=== PATIENT | male | born 1960 | race Caucasian/White ===

== ENCOUNTER → 2018-02-22 | Outpatient (CLI) | payer BC ==
[~2018-02-22] MED LIST: CATHETER FLUSH 10 ML SYR IV PRN; IOHEXOL 350 MG/ML 150 ML (OMNIPAQUE 350) VIAL IV ONE; MULT-974 PO; NS 250 ML (IVPB) BAG IV ONE; RECEIVED CONTRAST (Hold Metformin) IV SCH
[2018-02-22 16:16] LABS: BUN/CREATININE RATIO 13; CREATININE SERUM 0.85 MG/DL (0.60-1.30); GFR ESTIMATED > 60
--- NOTE | 2018-02-22 16:43 | Diagnostic Imaging Report ---
PROCEDURE: US Venous Lower Ext David. INDICATION: Shortness of breath, cough, hemoptysis, pain. TECHNIQUE: Grayscale with color-flow and Doppler waveform evaluation of the bilateral lower extremity deep venous systems. CORRELATION STUDY: None FINDINGS: Color and grayscale sonographic images demonstrate no intraluminal defect within the visualized portion of the common femoral, superficial femoral and/or popliteal veins to suggest thrombus formation. These vessels demonstrate normal response to compression and augmentation. No significant focal soft tissue fluid collection. IMPRESSION: 1. Negative for deep venous thrombosis of either leg. Dictated by: Dictated on workstation # [id number]
--- NOTE | 2018-02-22 17:20 | Diagnostic Imaging Report ---
PROCEDURE: CT angiography of the chest with contrast. TECHNIQUE: Multiple contiguous axial images were obtained through the chest after uneventful bolus administration of intravenous contrast. 2D reconstructed CTA MIP acquisitions were also performed. INDICATION: Chest pain and shortness of breath. COMPARISON: No prior studies are available for comparison. FINDINGS: The thoracic aorta is normal in caliber. No aneurysm or dissection is seen. Pulmonary arterial system is without evidence of thromboembolism. No filling defects are seen within central, lobar, or segmental branches. No pericardial or pleural fluid is seen. No axillary lymphadenopathy is detected. There are numerous calcified lymph nodes in the mediastinum and alia. There are also multiple calcified nodules throughout both lungs. Findings are consistent with prior granulomatous exposure. No noncalcified mass or infiltrate is detected. The upper abdomen is unremarkable. IMPRESSION: 1. No evidence of pulmonary embolism or thoracic aortic dissection. 2. Findings consistent with prior granulomatous exposure. Dictated by: Dictated on workstation # [id number]
== END ==
LOC: RAD 15:38
PROVIDERS: ATTEND Nurse Practitioner Family
DX: R06.02 Shortness of breath (principal); R04.2 Hemoptysis; M79.606 Pain in leg, unspecified
CPT/HCPCS: 36415; 71275; 82565; 84520; 93970; 94761

== ENCOUNTER 2018-02-23 15:27 | Emergency (ER) | payer BC ==
[~2018-02-23] VITALS: Ht 170.2 cm; Wt 74.8 kg
[2018-02-23] MEDS ORDERED: NITROGLYCERIN 0.4 MG SL TABS BTL 25'S SL PRN (15:45)
[2018-02-23] MEDS ORDERED: ASPIRIN 81 MG CHEW (CHILDREN'S ASA) PO ONE (15:45)
[2018-02-23] MEDS ORDERED: MULT-974 PO (15:53)
--- NOTE | 2018-02-23 15:54 | ED Chest Pain ---
General Chief Complaint: Chest Pain Stated Complaint: CP Source: patient Exam Limitations: no limitations History of Present Illness Date Seen by Provider: Feb 23, 2018 Time Seen by Provider: 15:29 Initial Comments The patient presents to the ER by private conveyance with his sister and chief complaint that he is having chest pain substernal that feels like in his chest wall like a pulled muscle radiates around to the back for the past one year. He is also been having a productive cough with flecks of blood in it for the past year. He says the pain is episodic worse with deep inspiration, coughing or movement when it happens. Usually uses some Tylenol or ibuprofen. He says the pain is episodic with this episode starting sometime this afternoon. He was at the hydrochloric area supervisor office referred there by Dr. CAGE his primary care doctor to have his chronic pulmonary and chest pain symptoms worked up. He says he's had plain radiographs done by PCP and thought there might some scarring from an old infection in his lungs. The hydrochloric area supervisor noted him to be having chest pain and sent him to the ER to have his heart worked up. He denies any previous history of coronary artery disease, hypertension, diabetes, cholesterolemia, hypothyroidism, smoking. No significant family history for coronary artery disease before the age of 60. His father had a heart valve replacement at age 66. He denies exposure to anybody with tuberculosis or a chronic cough or any travel outside the [place]. He does have horses that he takes care of and works and does see environments. 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 He states that Dr. Hernandez performed ultrasounds on his bilateral lower extremities as well as a CT angiogram of his chest which she was told was negative last night but he was encouraged to stay in the hospital as a direct admit to workup his chest pain and at that time he had to go home and take care of his horses so he declined to stay. He endorses occasional night sweats. He denies a history of HIV or other immunocompromise. Allergies and Home Medications Allergies Coded Allergies: No Known Drug Allergies (Unverified , 02/23/18) Patient Home Medication List Home Medication List Reviewed: Yes Review of Systems Review of Systems Constitutional: No chills, No diaphoresis EENTM: No Blurred Vision, No Double Vision Respiratory: Cough; Denies Shortness of Air, Denies Wheezing Cardiovascular: See HPI, Chest Pain; Denies Edema, Denies Irregular Heart Rate , Denies Palpitations, Denies Syncope Gastrointestinal: Denies Abdomen Distended, Denies Abdominal Pain, Denies Nausea Genitourinary: Denies Burning, Denies Discharge, Denies Drainage Musculoskeletal: No back pain, No joint pain Skin: No pruritus, No rash Past Ehmgaiu-Zdhfjv-Etocpe Hx Patient Social History Alcohol Use: Regular Use Alcohol Beverage of Choice: Beer Recreational Drug Use: No Smoking Status: Never a Smoker Recent Foreign Travel: No Contact w/Someone Who Travel: No Recent Hopitalizations: No Physical Abuse: No Sexual Abuse: No Mistreated: No Fear: No Seasonal Allergies Seasonal Allergies: No Past Medical History Surgeries: Yes (carpal tunnel bilat, hernia repair, spinal injections) Respiratory: No Cardiac: No Neurological: No Genitourinary: No Gastrointestinal: No Musculoskeletal: No Endocrine: No HEENT: No Cancer: No Psychosocial: No Integumentary: No Blood Disorders: No Physical Exam Vital Signs Vital Signs - First Documented 02/23/18 15:30 Temp 98.9 Pulse 82 Resp 16 B/P (MAP) 141/64 (89) Pulse Ox 97 O2 Delivery Room Air Capillary Refill : Less Than 3 Seconds Height, Weight, BMI Height: '" Weight: lbs. oz. kg; BMI Method: General Appearance: No Apparent Distress, WD/WN HEENT: PERRL/EOMI, Pharynx Normal, Moist Mucous Membranes Neck: Full Range of Motion, Normal Inspection, Supple Respiratory: Lungs Clear, Normal Breath Sounds, No Accessory Muscle Use, No Respiratory Distress, Other (chest pain reproducible by direct palpation over the sternum.) Cardiovascular: Regular Rate, Rhythm, Normal Peripheral Pulses Gastrointestinal: Normal Bowel Sounds, Non Tender, Soft Extremity: Normal Capillary Refill, Normal Inspection, Non Tender, No Calf Tenderness, No Pedal Edema Neurologic/Psychiatric: Alert, Oriented x3, No Motor/Sensory Deficits, Normal Mood/Affect Skin: Normal Color, Warm/Dry Other comments Neck and back nontender to palpation. Progress/Results/Core Measures Results/Orders Lab Results Laboratory Tests Test 02/23/18 15:35 Range/Units White Blood Count 4.6 4.3-11.0 10^3/uL Red Blood Count 4.40 4.35-5.85 10^6/uL Hemoglobin 13.0 L 13.3-17.7 G/DL Hematocrit 39 L 40-54 % Mean Corpuscular Volume 89 80-99 FL Mean Corpuscular Hemoglobin 30 25-34 PG Mean Corpuscular Hemoglobin Concent 33 32-36 G/DL Red Cell Distribution Width 13.1 10.0-14.5 % Platelet Count 276 130-400 10^3/uL Mean Platelet Volume 9.0 7.4-10.4 FL Neutrophils (%) (Auto) 52 42-75 % Lymphocytes (%) (Auto) 34 12-44 % Monocytes (%) (Auto) 10 0-12 % Eosinophils (%) (Auto) 2 0-10 % Basophils (%) (Auto) 1 0-10 % Neutrophils # (Auto) 2.4 1.8-7.8 X 10^3 Lymphocytes # (Auto) 1.6 1.0-4.0 X 10^3 Monocytes # (Auto) 0.5 0.0-1.0 X 10^3 Eosinophils # (Auto) 0.1 0.0-0.3 10^3/uL Basophils # (Auto) 0.0 0.0-0.1 10^3/uL Prothrombin Time 12.5 12.2-14.7 SEC INR Comment 0.9 0.8-1.4 Activated Partial Thromboplast Time 31 24-35 SEC Sodium Level 140 135-145 MMOL/L Potassium Level 3.9 3.6-5.0 MMOL/L Chloride Level 107 98-107 MMOL/L Carbon Dioxide Level 24 21-32 MMOL/L Anion Gap 9 5-14 MMOL/L Blood Urea Nitrogen 13 7-18 MG/DL Creatinine 0.84 0.60-1.30 MG/DL Estimat Glomerular Filtration Rate > 60 BUN/Creatinine Ratio 15 Glucose Level 108 H 70-105 MG/DL Calcium Level 9.5 8.5-10.1 MG/DL Corrected Calcium 9.4 8.5-10.1 MG/DL Magnesium Level 2.3 1.8-2.4 MG/DL Total Bilirubin 0.2 0.1-1.0 MG/DL Aspartate Amino Transf (AST/SGOT) 20 5-34 U/L Alanine Aminotransferase (ALT/SGPT) 17 0-55 U/L Alkaline Phosphatase 68 40-136 U/L Myoglobin 24.4 10.0-92.0 NG/ML Troponin I < 0.30 <0.30 NG/ML B-Type Natriuretic Peptide 13.7 <100.0 PG/ML Total Protein 7.2 6.4-8.2 GM/DL Albumin 4.1 3.2-4.5 GM/DL Lipase 18 8-78 U/L My Orders Orders - JORGITO SPAIN Continuous Ekg Monitoring (02/23/18 15:28) Ekg Tracing (02/23/18 15:28) Cbc With Automated Diff (02/23/18 15:45) Magnesium (02/23/18 15:45) Chest 1 View, Ap/Pa Only (02/23/18 15:45) Cardiac Profile 1 (02/23/18 15:45) Comprehensive Metabolic Panel (02/23/18 15:45) Myoglobin Serum (02/23/18 15:45) Protime With Inr (02/23/18 15:45) Partial Thromboplastin Time (02/23/18 15:45) O2 (02/23/18 15:45) Lipid Panel (02/24/18 06:00) Aspirin Chewable Tablet (Baby Aspirin Ch (02/23/18 15:45) Nitroglycerin 0.4 Mg Btl 25's (Nitrostat (02/23/18 15:45) Saline Lock/Iv-Start (02/23/18 15:45) Lipase (02/23/18 15:45) BNP (02/23/18 15:45) Medications Given in ED Current Medications Medications Dose Ordered Sig/Cornelius Route Start Time Stop Time Status Last Admin Dose Admin Aspirin 324 mg ONCE ONCE PO 02/23/18 15:45 02/23/18 15:49 DC 02/23/18 15:58 324 MG Nitroglycerin 0.4 mg UD PRN SL 02/23/18 15:45 02/23/18 15:56 0.4 MG Vital Signs/I&O 02/23/18 02/23/18 15:30 15:30 Temp 98.9 Pulse 82 Resp 16 B/P (MAP) 141/64 (89) Pulse Ox 97 O2 Delivery Room Air Progress Progress Note : Time: 15:55 Progress Note ED ACS 8 points lower risk score. If the patient also has: (1) EKG without new ischemic changes and (2) negative initial and 2-hour troponins, then this patient is safe for discharge to early outpatient follow-up investigation (or proceed to earlier inpatient testing). If EKG with ischemic changes or positive troponin, they are not low risk and require normal risk stratification. Patient' s pain has been going on for several hours today as well as its been going on for the past year. If of the initial troponin is negative we'll consider that a rule out. This is an atypical presentation for coronary disease however we will obtain a troponin to go along with his normal sinus rhythm EKG and did consultation with cardiology. It appears by history and examination to be more chest wall musculoskeletal-type pain. It's possibly secondary to his chronic cough. We put a mask on him since he has night sweats and chronic cough. We'll see if nitroglycerin makes any difference in his symptoms. If not we may consider NSAIDs. CT angiogram of the chest from yesterday demonstrates: 1. No evidence of pulmonary embolism or thoracic aortic dissection. 2. Findings consistent with prior granulomatous exposure. Initial ECG Impression Date: Feb 23, 2018 Initial ECG Impression Time: 15:31 Initial ECG Rate: 82 Initial ECG Rhythm: Normal Sinus Initial ECG Impression: Normal Initial ECG Comparisson: No Previous ECG Available Comment No ST elevation or depression. Diagnostic Imaging Diagonstic Imaging: Xray Plain Films/CT/US/NM/MRI: chest (1v) Comments VIA [facility]. [place], [place] NAME: DARLENE HUSSEIN [facility] REC#: [id number] PT STATUS: REG ER : 1960 PHYSICIAN: JORGITO SPAIN MD ADMIT DATE: 02/23/18/ER Draft Date of Exam:02/23/18 CHEST 1 VIEW, AP/PA ONLY INDICATION: Chest pain and hemoptysis. Portable chest at 03:58 p.m. FINDINGS: Heart size and pulmonary vascularity are normal. Lungs are clear. There are no effusions or pneumothoraces. IMPRESSION: Negative chest. Dictated on workstation # [id number] Dict: 02/23/18 1608 Trans: 02/23/18 1624 [id number] Interpreted by: JOE DAMIAN MD Electronically signed by: Reviewed: Reviewed by Me Consults : Consulting Physician: PHIL MATT MD Consults Notes Discussed case lab imaging findings and Dr. Matt would be happy to see the patient in the morning. Departure Impression Primary Impression: Chest pain Qualified Codes: R07.9 - Chest pain, unspecified Additional Impression: Hemoptysis Disposition: 01 HOME, SELF-CARE Condition: Stable Departure-Patient Inst. Decision time for Depature: 16:59 Referrals: CHEYENNE CAGE DO (PCP/Family) Primary Care Physician PHIL MATT MD Patient Instructions: Chest Pain That Is Not Caused by the Heart (DC) Add. Discharge Instructions: Call Dr. Matt, paralegal internship in the morning and request an appointment to be seen before the end of the week. Follow-up with Dr. Hernandez, pulmonology. All discharge instructions reviewed with patient and/or family. Voiced understanding. Work/School Note: Work Release Form Date Seen in the Emergency Department: Feb 23, 2018 Return to Work: Feb 24, 2018 Restrictions: No Restrictions Copy Copies To 1: CHEYENNE CAGE DO; PHIL MATT MD, TITUS J Feb 23, 2018 15:54
[2018-02-23 16:07] LABS: BASOPHILS % (AUTO) 1 % (0-10); EOSINOPHILS # (AUTO) 0.1 10^3/uL (0.0-0.3); EOSINOPHILS % (AUTO) 2 % (0-10); HEMATOCRIT 39 % (40-54); LYMPHOCYTES # (AUTO) 1.6 X 10^3 (1.0-4.0); LYMPHOCYTES % (AUTO) 34 % (12-44); MEAN CORPUSCULAR HEMOGLOBIN 30 PG (25-34); MEAN CORPUSCULAR HGB CONC 33 G/DL (32-36); MEAN CORPUSCULAR VOLUME 89 FL (80-99); MONOCYTES # (AUTO) 0.5 X 10^3 (0.0-1.0); MONOCYTES % (AUTO) 10 % (0-12); NEUTROPHILS # (AUTO) 2.4 X 10^3 (1.8-7.8); NEUTROPHILS % (AUTO) 52 % (42-75); PLATELET COUNT 276 10^3/uL (130-400); RED CELL DISTRIBUTION WIDTH 13.1 % (10.0-14.5); WHITE BLOOD COUNT 4.6 10^3/uL (4.3-11.0)
[2018-02-23 16:16] LABS: INR 0.9 (0.8-1.4); PROTHROMBIN TIME PATIENT 12.5 SEC (12.2-14.7)
[2018-02-23 16:22] LABS: ALANINE AMINOTRANSFERASE 17 U/L (0-55); ALBUMIN 4.1 GM/DL (3.2-4.5); ALKALINE PHOSPHATASE 68 U/L (40-136); BILIRUBIN,TOTAL 0.2 MG/DL (0.1-1.0); BUN/CREATININE RATIO 15; CALCIUM 9.5 MG/DL (8.5-10.1); CARBON DIOXIDE 24 MMOL/L (21-32); CHLORIDE 107 MMOL/L (98-107); CREATININE SERUM 0.84 MG/DL (0.60-1.30); GFR ESTIMATED > 60; GLUCOSE 108 MG/DL (70-105); LIPASE 18 U/L (8-78); MAGNESIUM 2.3 MG/DL (1.8-2.4); POTASSIUM 3.9 MMOL/L (3.6-5.0); SODIUM 140 MMOL/L (135-145); TOTAL PROTEIN 7.2 GM/DL (6.4-8.2)
--- NOTE | 2018-02-23 16:24 | Diagnostic Imaging Report ---
INDICATION: Chest pain and hemoptysis. Portable chest at 03:58 p.m. FINDINGS: Heart size and pulmonary vascularity are normal. Lungs are clear. There are no effusions or pneumothoraces. IMPRESSION: Negative chest. Dictated by: Dictated on workstation # [id number]
[2018-02-23 16:28] LABS: MYOGLOBIN SERUM 24.4 NG/ML (10.0-92.0)
[2018-02-23 17:10] VITALS: BP 124/77
== END 2018-02-23 17:10 | disposition home or self-care (01) ==
LOC: EDUNIT# 15:27 → ER 15:28
DX: R07.81 Pleurodynia (principal); R04.2 Hemoptysis; Z82.49 Family history of ischemic heart disease and other diseases of the circulatory system; Z95.2 Presence of prosthetic heart valve; Z98.890 Other specified postprocedural states
CPT/HCPCS: 36415; 71045; 80053; 83690; 83735; 83874; 83880; 84484; 85025; 85610; 85730; 93005

== ENCOUNTER 2018-03-07 10:15 | Outpatient (CLI) | payer BC ==
[~2018-03-07] VITALS: Ht 170.2 cm; Wt 74.8 kg
[~2018-03-07 10:15] MED LIST changes: -CATHETER FLUSH 10 ML SYR IV PRN; -IOHEXOL 350 MG/ML 150 ML (OMNIPAQUE 350) VIAL IV ONE; -NS 250 ML (IVPB) BAG IV ONE; -RECEIVED CONTRAST (Hold Metformin) IV SCH
[2018-03-07] MEDS ORDERED: CINN500C2 PO (10:21)
== END 2018-03-07 10:34 | disposition home or self-care (01) ==
LOC: PREOP 10:15
PROVIDERS: ATTEND Internal Medicine Critical Care Medicine
DX: Z01.818 Encounter for other preprocedural examination (principal)

== ENCOUNTER 2018-03-09 07:41 | Day surgery (SDC) | payer BC ==
[~2018-03-09] VITALS: Ht 170.2 cm; Wt 74.8 kg
[~2018-03-09 07:41] MED LIST changes: +CINN500C2 PO
[2018-03-09] MEDS ORDERED: LIDOCAINE JELLY 2% (XYLOCAINE) 30 ML TUBE TOP ONE (07:42)
[2018-03-09] MEDS ORDERED: LIDOCAINE PF 2% 5 ML (XYLOCAINE) VIAL INJ ONE (07:42)
[2018-03-09] MEDS ORDERED: LIDOCAINE PF 1% 2 ML VIAL (OR ONLY) IJ ONE (07:42)
[2018-03-09] MEDS ORDERED: 0.9% SODIUM CHLORIDE PF INJ 10 ML VIAL IV ONE (07:42)
[2018-03-09] MEDS ORDERED: EPINEPHrine INJECTION 1 MG/ML AMP INJ ONE (07:42)
[2018-03-09] MEDS ORDERED: NS IV 500 ML 500 ML ONE (08:01)
[2018-03-09] MEDS ORDERED: MIDAZOLAM 2 MG/2 ML (VERSED) VIAL IVP ONE (08:15)
[2018-03-09] MEDS ORDERED: NS IV 500 ML 500 ML IV PRN (08:15)
[2018-03-09] MEDS ORDERED: fentaNYL INJECTION 100 MCG/2 ML AMP IVP ONE (08:15)
[2018-03-09 08:21] VITALS: BP 124/69
[2018-03-09] MEDS ORDERED: fentaNYL INJECTION 100 MCG/2 ML AMP ONE ×2 (09:04→09:26)
[2018-03-09] MEDS ORDERED: MIDAZOLAM 2 MG/2 ML (VERSED) VIAL ONE ×4 (09:05→09:32)
[2018-03-09 10:10] VITALS: BP 126/78
--- NOTE | 2018-03-09 10:29 | Diagnostic Imaging Report ---
INDICATION: Post bronchoscopy. TECHNIQUE: A frontal chest was obtained at 1016 hours. COMPARISON: 02/23/2018. FINDINGS: The heart and mediastinal silhouette are normal in appearance. There is no pneumothorax or pleural fluid following bronchoscopy. There is no new infiltrate. IMPRESSION: No pneumothorax or pleural fluid following bronchoscopy. No new abnormality in the chest. Dictated by: Dictated on workstation # [id number]
[2018-03-09 10:41] VITALS: BP 124/80
[2018-03-09 10:42] VITALS: BP 124/80
--- NOTE | 2018-03-30 12:20 | Pulmonary Procedures ---
Pulmonary Procedures Date of Procedure Date of Service: Mar 09, 2018 Bronch Bronchoscopy with fleuroscopy bronchoalveolar lavage (BAL), transbronchial washes and, brushes. Preop DX Lung mass Postop DX: Right endobronchial mass noted Complications: none After informed consent obtained and formal time out pt was sedated using Fentanyl and Versed. Bronchoscope was advanced through the nare and vocal cords. 1% lidocaine was used to anesthetize vocal cords, epiglottis, sd, and left/right main stem bronchus. An anatomical tour was undertaken down to the segmental bronchi bilaterally. Right endobronchial mass noted . From the right bronchus a bronchoalveolar lavage (BAL), transbronchial washes and, brushes were obtained. Pt tolerated procedure well. No complications noted. Stat CXR is pending. ANN-MARIE TEIXEIRA DO Mar 30, 2018 12:19
== END 2018-03-09 10:43 | disposition home or self-care (01) ==
LOC: ENDO 07:41
PROVIDERS: ATTEND Internal Medicine Critical Care Medicine
DX: R04.2 Hemoptysis (principal); R06.02 Shortness of breath; R91.8 Other nonspecific abnormal finding of lung field
CPT/HCPCS: 71045; 87015; 87070; 87101; 87116; 87205; 87206; 88112; 88305; 94640

== ENCOUNTER → 2018-03-18 | Outpatient (CLI) | payer BC ==
[~2018-03-18] MED LIST changes: +RT-ALBUTEROL SULF 2.5 MG/3 ML PRE-MIX VIAL INH ONE
== END ==
LOC: RT 13:41
PROVIDERS: ATTEND Nurse Practitioner Family
DX: R05 Cough (principal); R04.2 Hemoptysis; M79.606 Pain in leg, unspecified; R06.00 Dyspnea, unspecified
CPT/HCPCS: 94060; 94726; 94729

== ENCOUNTER → 2018-06-03 | Outpatient (CLI) | payer BC ==
[~2018-06-03] MED LIST changes: +RECEIVED CONTRAST 20 ML VIAL IV SCH; -RT-ALBUTEROL SULF 2.5 MG/3 ML PRE-MIX VIAL INH ONE
[2018-06-03] MEDS: DIATRIZOATE MEGLUM/SODIUM 37% 120 ML (GASTROGRAFIN) PO ONE (12:00)
[2018-06-03 12:51] LABS: HEMATOCRIT 41 % (40-54); HEMOGLOBIN 13.7 G/DL (13.3-17.7); LYMPHOCYTES % (AUTO) 17 % (12-44); MEAN CORPUSCULAR HEMOGLOBIN 30 PG (25-34); MEAN CORPUSCULAR HGB CONC 33 G/DL (32-36); MEAN CORPUSCULAR VOLUME 89 FL (80-99); MEAN PLATELET VOLUME 8.5 FL (7.4-10.4); NEUTROPHILS % (AUTO) 76 % (42-75); PLATELET COUNT 286 10^3/uL (130-400); RED CELL DISTRIBUTION WIDTH 12.9 % (10.0-14.5); WHITE BLOOD COUNT 5.9 10^3/uL (4.3-11.0)
[2018-06-03 12:52] LABS: BASOPHILS # (AUTO) 0.1 10^3/uL (0.0-0.1); BASOPHILS % (AUTO) 1 % (0-10); EOSINOPHILS % (AUTO) 0 % (0-10); MONOCYTES # (AUTO) 0.3 X 10^3 (0.0-1.0); MONOCYTES % (AUTO) 5 % (0-12); NEUTROPHILS # (AUTO) 4.5 X 10^3 (1.8-7.8)
[2018-06-03 12:54] LABS: BILIRUBIN,TOTAL 0.3 MG/DL (0.1-1.0); BUN/CREATININE RATIO 10; CALCIUM 9.3 MG/DL (8.5-10.1); CARBON DIOXIDE 21 MMOL/L (21-32); CHLORIDE 105 MMOL/L (98-107); CREATININE SERUM 1.17 MG/DL (0.60-1.30); GFR ESTIMATED > 60; GLUCOSE 125 MG/DL (70-105); POTASSIUM 4.7 MMOL/L (3.6-5.0); SODIUM 142 MMOL/L (135-145)
[2018-06-03 12:55] LABS: ALANINE AMINOTRANSFERASE 17 U/L (0-55); ALBUMIN 4.3 GM/DL (3.2-4.5); ALKALINE PHOSPHATASE 68 U/L (40-136); TOTAL PROTEIN 7.1 GM/DL (6.4-8.2)
[2018-06-03 13:20] LABS: INR 1.1 (0.8-1.4); PROTHROMBIN TIME PATIENT 13.7 SEC (12.2-14.7)
[2018-06-03] MEDS: IOPAMIDOL 61% 100 ML (ISOVUE 300) VIAL IV ONE (13:30)
[2018-06-03] MEDS: NS 50 ML (IVPB) BAG IV ONE (13:35)
[2018-06-03] MEDS: CATHETER FLUSH 10 ML SYR IV PRN (13:35)
--- NOTE | 2018-06-03 14:52 | Diagnostic Imaging Report ---
PROCEDURE: CT chest, abdomen, and pelvis with contrast. TECHNIQUE: Multiple contiguous axial images were obtained through the chest, abdomen, and pelvis after the administration of intravenous contrast. INDICATION: Hemoptysis as well as bloody stools. COMPARISON: Correlation is made with prior CT chest from 02/22/2018. No prior CT of the abdomen and pelvis study is available for comparison. CT CHEST: No axillary lymphadenopathy is seen. Calcified mediastinal and bilateral hilar lymph nodes again noted consistent with prior granulomatous exposure. No pericardial or pleural fluid is seen. There are calcified nodules in both lungs consistent with granulomas. No noncalcified mass or infiltrate is seen. IMPRESSION: Findings remain consistent with prior granulomatous exposure. No other significant abnormality of the chest is identified. CT ABDOMEN AND PELVIS: No discrete liver mass is identified. Gallbladder is unremarkable. There is no biliary duct dilatation. Pancreas and spleen are unremarkable. No adrenal mass is identified. Kidneys are unremarkable. Aorta is non-aneurysmal. Small and large bowel loops are normal in caliber. There is no ascites. Bladder and prostate are unremarkable. There is a fat-containing left inguinal hernia. No definite abdominal or pelvic lymphadenopathy is seen. IMPRESSION: Unremarkable CT of the abdomen and pelvis. No abdominal lymphadenopathy or mass is seen. No acute feature is identified. Dictated by: Dictated on workstation # [id number]
== END ==
LOC: RAD FS 11:22
PROVIDERS: ATTEND Internal Medicine Critical Care Medicine
DX: K92.1 Melena (principal); R04.2 Hemoptysis; R06.02 Shortness of breath; R91.8 Other nonspecific abnormal finding of lung field; M79.606 Pain in leg, unspecified
CPT/HCPCS: 36415; 71260; 74177; 80053; 85025; 85610; 85730

== ENCOUNTER 2018-06-13 12:45 | Outpatient (CLI) | payer BC, OTHER ==
[~2018-06-13] VITALS: Ht 170.2 cm; Wt 74.8 kg
[~2018-06-13 12:45] MED LIST changes: -RECEIVED CONTRAST 20 ML VIAL IV SCH
== END 2018-06-13 13:15 | disposition home or self-care (01) ==
LOC: PREOP 12:45
PROVIDERS: ATTEND Internal Medicine Critical Care Medicine
DX: Z01.818 Encounter for other preprocedural examination (principal)

== ENCOUNTER 2018-06-15 06:58 | Day surgery (SDC) | payer BC ==
[~2018-06-15] VITALS: Ht 170.2 cm; Wt 74.8 kg
[2018-06-15] MEDS ORDERED: SOD CHL BACTER. 10 ML (IV START) VIAL IJ ONE (06:59)
[2018-06-15] MEDS ORDERED: LIDOCAINE PF 2% 5 ML (XYLOCAINE) VIAL INJ ONE (06:59)
[2018-06-15] MEDS ORDERED: LIDOCAINE PF 1% 2 ML VIAL (OR ONLY) IJ ONE (06:59)
[2018-06-15] MEDS ORDERED: EPINEPHrine INJECTION 1 MG/ML AMP IJ ONE (06:59)
[2018-06-15] MEDS ORDERED: LACTATED RINGERS 1,000 ML IV ONE (07:10)
[2018-06-15] MEDS ORDERED: SEVOFLURANE (ULTANE) 15 ML INHAL SOLN ONE ×2 (07:24→08:12)
[2018-06-15] MEDS ORDERED: fentaNYL INJECTION 100 MCG/2 ML AMP ONE (07:24)
[2018-06-15] MEDS ORDERED: proPOfol 200 MG/20 ML (DIPRIVAN) VIAL IV ONE ×2 (07:24→07:49)
[2018-06-15] MEDS ORDERED: ONDANSETRON 4 MG/2 ML (SDV) Z0FRAN ONE (07:25)
[2018-06-15] MEDS ORDERED: LIDOCAINE PF 2% 5 ML (XYLOCAINE) VIAL ONE (07:25)
[2018-06-15] MEDS ORDERED: DEXAMETHASONE 10 MG/ML (DECADRON) 1 ML VIAL ONE (07:25)
[2018-06-15] MEDS ORDERED: MIDAZOLAM 2 MG/2 ML (VERSED) VIAL ONE (07:25)
[2018-06-15] MEDS ORDERED: LACTATED RINGERS 1,000 ML IV STA (07:51)
[2018-06-15 07:55] VITALS: BP 135/86
[2018-06-15 08:45] VITALS: BP 112/55
--- NOTE | 2018-06-15 08:52 | Pulmonary Procedures ---
Pulmonary Procedures Date of Procedure Date of Service: Jun 15, 2018 Bronch Bronchoscopy with bronchoalveolar lavage (BAL), forcep bx bronchial washes and , brushes including percepta were obtained. Preop DX Endobronchial mass right mainstem bronchus with hemoptysis Postop DX: Right mainstem bronchus mass noted however appears larger then before with last bronch- pictures taken Complications: none After informed consent obtained pt sedated per anesthesia and LMA placed. Bronchoscope was advanced through the LMA. 1% lidocaine was used to anesthetize vocal cords, epiglottis, sd, and left/right main stem bronchus. An anatomical tour was undertaken down to the segmental bronchi bilaterally. Right mainstem bronchus mass noted however appears larger then before with last bronch. From endobronchial mass bronchial washes, forcep bx and, brushes were obtained. Pt tolerated procedure well. No complications noted. Stat CXR is pending. ANN-MARIE TEIXEIRA DO Jun 15, 2018 08:52
[2018-06-15 09:15] VITALS: BP 123/68
--- NOTE | 2018-06-15 09:28 | Diagnostic Imaging Report ---
INDICATION: Bronchoscopy COMPARISON: 03/09/2018 FINDINGS: Single view of the chest demonstrates perihilar atelectasis. There is no pneumothorax. Heart is prominent but stable. No large effusion seen. IMPRESSION: Perihilar atelectasis. No pneumothorax identified Dictated by: Dictated on workstation # [id number]
[2018-06-15 11:06] VITALS: BP 123/68
== END 2018-06-15 10:00 | disposition home or self-care (01) ==
LOC: ENDO 06:58
PROVIDERS: ATTEND Internal Medicine Critical Care Medicine
DX: J98.4 Other disorders of lung (principal); J98.09 Other diseases of bronchus, not elsewhere classified; R04.2 Hemoptysis; R06.02 Shortness of breath; K92.1 Melena
CPT/HCPCS: 71045; 87015; 87070; 87101; 87116; 87205; 87206; 94640

== ENCOUNTER → 2018-06-21 | Outpatient (CLI) | payer BC ==
--- NOTE | 2018-06-15 13:15 | Anesthesia-General Post-Op ---
General Patient Condition Mental Status/LOC: Same as Preop Cardiovascular: Satisfactory Nausea/Vomiting: Absent Respiratory: Satisfactory Pain: Controlled Complications: Absent Post Op Complications Complications None Follow Up Care/Instructions Patient Instructions None needed. Anesthesia/Patient Condition Patient Condition Patient is doing well, no complaints, stable vital signs, no apparent adverse anesthesia problems. No complications reported per nursing. THU LEAHY CRNA Jun 15, 2018 13:15
--- NOTE | 2018-06-21 16:19 | Diagnostic Imaging Report ---
INDICATION: Endobronchial mass. TECHNIQUE: Serum blood glucose level at the time of injection was 99 mg/dL. Patient was a administered 13.2 mCi F-18 FDG intravenously in the right antecubital region and PET imaging from the top of the skull to the mid thighs was performed. Noncontrast CT was also performed for attenuation correction and anatomic correlation. COMPARISON: No prior PET studies available for comparison. Comparison is made with prior CT chest, abdomen and pelvis from 06/03/2018. FINDINGS: There is symmetric activity throughout the brain. Soft tissues of the neck are unremarkable. Imaging through the chest does show hypermetabolism within a subcarinal lymph node demonstrating SUV max of 6.1. This lymph node does appear to be partially calcified. Yesica are unremarkable. No pulmonary parenchymal hypermetabolism is seen. Imaging through the abdomen and pelvis demonstrates physiologic activity within the GI and tracts. No hypermetabolic lymphadenopathy is seen. IMPRESSION: Abnormal hypermetabolism is identified in the subcarinal lymph node. This is seen on the attenuation correction and nonattenuation correction images and is suspicious for neoplastic or lymphomatous involvement. No other regions of abnormal hypermetabolism are identified. Dictated by: Dictated on workstation # [id number]
== END ==
LOC: RAD 12:14
PROVIDERS: ATTEND Nurse Practitioner Family
DX: R91.8 Other nonspecific abnormal finding of lung field (principal); R06.02 Shortness of breath; R04.2 Hemoptysis

== ENCOUNTER 2021-09-10 11:43 | Emergency (ER) | payer BC ==
[~2021-09-10] VITALS: Ht 173 cm; Wt 77.1 kg
[2021-09-10] MEDS ORDERED: LACTATED RINGERS 1,000 ML IV ONE ×2 (12:15→13:30)
[2021-09-10] MEDS ORDERED: ONDANSETRON 4 MG/2 ML (SDV) Z0FRAN IVP ONE (12:15)
[2021-09-10 12:25] LABS: BASOPHILS % (AUTO) 1 % (0-10); EOSINOPHILS % (AUTO) 0 % (0-10); HEMATOCRIT 40 % (40-54); HEMOGLOBIN 13.5 g/dL (13.3-17.7); LYMPHOCYTES # (AUTO) 0.3 10^3/uL (1.0-4.0); LYMPHOCYTES % (AUTO) 6 % (12-44); MEAN CORPUSCULAR HEMOGLOBIN 30 pg (25-34); MEAN CORPUSCULAR HGB CONC 34 g/dL (32-36); MEAN CORPUSCULAR VOLUME 88 fL (80-99); MEAN PLATELET VOLUME 8.9 fL (9.0-12.2); MONOCYTES # (AUTO) 0.3 10^3/uL (0.0-1.0); MONOCYTES % (AUTO) 5 % (0-12); NEUTROPHILS # (AUTO) 5.1 10^3/uL (1.8-7.8); NEUTROPHILS % (AUTO) 89 % (42-75); PLATELET COUNT 167 10^3/uL (130-400); WHITE BLOOD COUNT 5.8 10^3/uL (4.3-11.0)
[2021-09-10 12:47] LABS: ALBUMIN 3.8 GM/DL (3.2-4.5); CHLORIDE 100 MMOL/L (98-107); POTASSIUM 3.9 MMOL/L (3.6-5.0); SODIUM 133 MMOL/L (135-145)
[2021-09-10 12:49] LABS: CALCIUM 8.8 MG/DL (8.5-10.1)
[2021-09-10 12:50] LABS: GLUCOSE 126 MG/DL (70-105); TOTAL PROTEIN 7.2 GM/DL (6.4-8.2)
[2021-09-10 12:51] LABS: BILIRUBIN,TOTAL 0.4 MG/DL (0.1-1.0); CARBON DIOXIDE 24 MMOL/L (21-32)
[2021-09-10 12:52] LABS: BAND NEUTROPHILS 9 %; LYMPHOCYTES % (MANUAL) 6 %; MONOCYTES % (MANUAL) 4 %; NEUTROPHILS % (MANUAL) 81 %; RBC MORPH NORMAL
[2021-09-10 12:53] LABS: ALKALINE PHOSPHATASE 56 U/L (40-136); GFR ESTIMATED 98
[2021-09-10 12:54] LABS: BUN/CREATININE RATIO 11
[2021-09-10 12:56] LABS: ALANINE AMINOTRANSFERASE 15 U/L (0-55)
[2021-09-10 12:57] LABS: CREATINE KINASE 82 U/L (30-200)
[2021-09-10 12:57] LABS: BILIRUBIN,URINE NEGATIVE (NEGATIVE); CLARITY,URINE CLEAR; COLOR,URINE YELLOW; GLUCOSE, URINE (UA) NEGATIVE (NEGATIVE); KETONES,URINE TRACE (NEGATIVE); LEUKOCYTE ESTERASE ,URINE NEGATIVE (NEGATIVE); NITRITE,URINE NEGATIVE (NEGATIVE); PROTEIN,URINE 2+ (NEGATIVE)
[2021-09-10 13:14] LABS: AMORPHOUS SEDIMENT,UR RARE AMOR URATES /LPF; BACTERIA,URINE NEGATIVE /HPF; RBC,URINE RARE /HPF; SQUAMOUS EPITHELIAL CELL,UR RARE /HPF
[2021-09-10 13:16] LABS: TSH (THYROID ANALYZER) 1.33 UIU/ML (0.35-4.94)
--- NOTE | 2021-09-10 13:26 | Diagnostic Imaging Report ---
INDICATION: Fever, chest pain. COMPARISON: 06/15/2018 TECHNIQUE: Single radiograph of the chest dated 09/10/2021. FINDINGS: The cardiac silhouette is within normal limits in size. No significant pulmonary vascular congestion. The lungs are clear. No pleural effusion. No pneumothorax. No acute osseous abnormality. IMPRESSION: No acute cardiopulmonary abnormality. Dictated by: Dictated on workstation # [id number]
[2021-09-10] MEDS ORDERED: KETOROLAC 30 MG/ML VIAL IVP ONE ×2 (15:00→18:45)
[2021-09-10] MEDS ORDERED: NS 100 ML (IVPB) BAG IV ONE (15:30)
[2021-09-10] MEDS ORDERED: fentaNYL INJ 100 MCG/2 ML AMP IVP ONE ×2 (15:30→21:15)
[2021-09-10] MEDS ORDERED: IOHEXOL 350 MG/ML 100 ML (OMNIPAQUE 350) VIAL IV ONE (15:30)
[2021-09-10] MEDS ORDERED: HOLD METFORMIN - RECEIVED CONTRAST 20 ML VIAL IV SCH (15:30)
--- NOTE | 2021-09-10 15:36 | Diagnostic Imaging Report ---
PROCEDURE: CT head without contrast. TECHNIQUE: Multiple contiguous axial images were obtained through the brain without the use of intravenous contrast. Auto Exposure Controls were utilized during the CT exam to meet ALARA standards for radiation dose reduction. INDICATION: Fever and cough. COMPARISON: No prior studies are available for comparison. FINDINGS: Ventricles and sulci are within normal limits. No sulcal effacement or midline shift is identified. No acute intra-axial or extra-axial hemorrhage is detected. Cisterns are patent. Visualized paranasal sinuses are clear. IMPRESSION: No acute intracranial process is detected. Dictated by: Dictated on workstation # [id number]
--- NOTE | 2021-09-10 15:46 | Diagnostic Imaging Report ---
PROCEDURE: CT angiography of the chest with contrast. TECHNIQUE: Multiple contiguous axial images were obtained through the chest after uneventful bolus administration of intravenous contrast. 3D reconstructed CTA MIP acquisitions were also performed. Auto Exposure Controls were utilized during the CT exam to meet ALARA standards for radiation dose reduction. INDICATION: Fever, cough as well as joint pain, nausea and headache. COMPARISON: Correlation is made with prior CT chest from 06/03/2018. FINDINGS: Evaluation of the pulmonary arterial system is without thromboembolism. No filling defects are seen within central, lobar or segmental branches. Thoracic aorta is nonaneurysmal. No dissection is seen. There are calcified lymph nodes throughout the mediastinum and alia bilaterally, consistent with prior granulomatous exposure. There is no pericardial or pleural fluid. Lungs are clear. No infiltrates are seen. Upper abdomen is unremarkable. IMPRESSION: 1. No evidence of pulmonary embolism or acute aortic disease. 2. Prior granulomatous exposure. Dictated by: Dictated on workstation # [id number]
[2021-09-10] MEDS ORDERED: ACETAMINOPHEN 500 MG TAB (TYLENOL) PO ONE (16:15)
--- NOTE | 2021-09-10 18:44 | Anesthesia-Procedure Note ---
Procedures/Interventions Procedure Start/Stop/Diagnosis Date of Procedure: Sep 10, 2021 Start Time: 18:10 Referring Physician: Gabriela Preprocedural Diagnosis: fever, fatigue, weakness, body aches Brief History Called to perform lumbar puncture on pt with complaints of fever, fatigue, body aches last two weeks. Brief report obtained from RN and Dr. Ochoa. Pt interview and history obtained. Risks and benefits of procedure explained and consent obtained. Pt turned to left lat decubitus and lumbar L3-4 prepped with betadine swaps x3. 5cc 1% Lidocaine injected for skin/SQ. #22 Quincke inserted x1 attempt with flow of clear CSF. Opening pressure was 80ixM80. 4 sterile samples of CSF taken in separate containers and given to RN. 8cc of CSF total for lab. Site covered with bandaid and instructed pt to lay supine for an hour post procedure. No complication to report. VSS Stop Time: 18:30 Postprocedural Diagnosis: fever, fatigue, weakness, body aches Lumbar Puncture Discussed Risk,Benefits: Yes Patient Consents: Yes Position: Lying, L3-4, Left Sterile Technique: Yes Opening Pressure: 19 Fluid Color: clear Spinal Needle Used: Other (22g Quicke) ROMULO JESUS CRNA Sep 10, 2021 18:44
[2021-09-10 18:54] LABS: CSF GLUCOSE 69 MG/DL (50-80)
[2021-09-10 19:00] LABS: CSF TOTAL PROTEIN 114 MG/DL (15-40)
[2021-09-10] MEDS ORDERED: DOXYCYCLINE INJECTION 100 MG in NS (IVPB) 100 ML IV ONE (19:00)
[2021-09-10 19:11] LABS: APPEARANCE,CSF CLEAR; COLOR,CSF COLORLESS
--- NOTE | 2021-09-10 19:49 | ED General ---
General Chief Complaint: COVID19 Suspect/Confirmed Stated Complaint: FEVER - DIZZY - BODY ACHES - FATIGUE Nursing Triage Note: FEVER, COUGH, JOINT PAIN, NAUSEA, HEADACHE, WOULD LIKE TO BE CHECKED FOR TICK BORN ILLNESS, REPORTS COVID WAS NEGATIVE IN DR SUHAS OFFICE WEDNESDAY, PT REPORTS THAT SYMPTOMS HAVE BEEN GOING ON FOR 2 WEEKS Source of Information: Patient, Family Exam Limitations: No Limitations (KAI COOK MD) History of Present Illness Date Seen by Provider: Sep 10, 2021 Time Seen by Provider: 11:52 Initial Comments This 60-year-old gentleman presents to the emergency room with flulike symptoms including fevers, chills, headache, chest discomfort, myalgia, nausea, vomiting, diarrhea, chest discomfort, and shortness of breath. He has not felt well for 6 weeks and has had more intense illness for 2 weeks. He states a more intense decline over the past 2 days. He was seen at the [facility] clinic on September 08. Tickborne disease was suspected and a tick panel was obtained. Patient reports multiple tick bites this spring. I did check with the clinic and the Lyme disease portion of the panel was negative. The remaining portion is still pending. The only other pertinent positives on labs from that blood draw were a glucose of 104 and a WBC of 3.7. Patient was prescribed amoxicillin and he has been taking it since then. He is alert and oriented but cognition seems dulled and slightly confused at times. He is febrile on presentation despite taking Tylenol and ibuprofen this morning. Patient has a prior history of a pulmonary bronchial lesion requiring bronchoscopy with biopsy as well as further treatment at . Pathology report available here demonstrates granulomatous tissue. He reports a negative COVID-19 test in the clinic on September 08. (KAI COOK MD) Allergies and Home Medications Allergies Coded Allergies: No Known Drug Allergies (Unverified , 06/13/18) Patient Home Medication List Home Medication List Reviewed: Yes (KAI COOK MD) Cinnamon Bark (Cinnamon) 500 Mg Capsule, 1,000 MG PO DAILY, (Reported) Entered as Reported by: RADHA ROSARIO on 03/07/18 1021 Multivitamin (Multi-Vitamin Daily) 1 Each Tablet, 1 EACH PO DAILY, (Reported) Entered as Reported by: DANITA RAYMOND on 02/23/18 2577 Review of Systems Review of Systems Constitutional: see HPI EENTM: no symptoms reported Respiratory: see HPI Cardiovascular: no symptoms reported, other Gastrointestinal: see HPI Genitourinary: frequency Musculoskeletal: see HPI Skin: no symptoms reported Psychiatric/Neurological: See HPI Hematologic/Lymphatic: No Symptoms Reported (KAI COOK MD) Past Iteuiud-Fpqvta-Lsdkcz Hx Patient Social History Tobacco Use?: No Use of E-Cig and/or Vaping dev: No Substance use?: No Alcohol Use?: Yes Alcohol type: Beer Alcohol Frequency: Couple times a week (KAI COOK MD) Immunizations Up To Date Tetanus Booster (TDap): Unknown (KAI COOK MD) Seasonal Allergies Seasonal Allergies: Yes (KAI COOK MD) Past Medical History Surgeries: Yes (carpal tunnel bilat, hernia repair, spinal injections) Abdominal (Hernia repair, bronchoscopy with biopsy), Orthopedic (Spinal injection therapy, bilateral carpal tunnel) Respiratory: Yes (SOB, hemoptysis, bronchial lesion requiring intervention for excision) Currently Using CPAP: No Currently Using BIPAP: No Cardiac: No Neurological: No Sexually Transmitted Disease: No HIV/AIDS: No Genitourinary: No Gastrointestinal: No Musculoskeletal: Yes Arthritis, Chronic Back Pain Endocrine: No HEENT: Yes (READING GLASSES) Loss of Vision: Bilateral Hearing Impairment: Denies Cancer: No Psychosocial: Yes (HX OF) Anxiety, Depression Integumentary: No Blood Disorders: No Adverse Reaction/Blood Tranf: No (N/A) (KAI COOK MD) Physical Exam-Suspected Sepsis Physical Exam Vital Signs Vital Signs - First Documented (ALEX LOGAN DO) Vital Signs Capillary Refill : Less Than 3 Seconds (KAI COOK MD) Blood Pressure Mean: 91 Height, Weight, BMI Height: 5'7.00" Weight: 165lbs. 0.0oz. [id number]; 25.00 BMI Method:Stated General Appearance: WD/WN, Mild Distress, Other (Generally ill-appearing) HEENT: PERRL/EOMI, TMs Normal, Other (Oropharynx dry) Neck: Normal Inspection Respiratory: Lungs Clear, Normal Breath Sounds, No Accessory Muscle Use, No Respiratory Distress Cardiovascular: Regular Rate, Rhythm, No Edema, No Murmur Gastrointestinal: Normal Bowel Sounds, Non Tender; No Distended Extremity: Normal Inspection, No Pedal Edema Neurologic/Psychiatric: Alert, Oriented x3, No Motor/Sensory Deficits, briar cutter II- XII Norm as Tested, Other (Alert and oriented but cognition dulled and slow) Skin: normal color, diaphoresis (KAI COOK MD) Focused Exam Lactate Level 09/10/21 12:15: Lactic Acid Level 1.19 (ALEX LOGAN DO) Procedures/Interventions Discussed Risk,Benefits: Yes Patient Consents: Yes Position: Lying, L3-4, Left Sterile Technique: Yes Opening Pressure: 19 Fluid Color: clear (KAI COOK MD) Progress/Results/Core Measures Suspected Sepsis Recent Fever Within 48 Hours: Yes Infection Criteria Present: Suspected New Infection New/Unexplained Altered Menta: No SIRS Temperature: Pulse: 104 Respiratory Rate: 22 Laboratory Tests 09/10/21 12:15: White Blood Count 5.8 09/11/21 07:25: White Blood Count 5.2 Blood Pressure 146 /64 Mean: 91 09/10/21 12:15: Lactic Acid Level 1.19 Laboratory Tests 09/10/21 12:15: Creatinine 0.90, INR Comment 1.0, Platelet Count 167, Total Bilirubin 0.4 09/11/21 07:25: Creatinine 0.72, Platelet Count 147, Total Bilirubin 0.3 (KAI COOK MD) Results/Orders Lab Results Laboratory Tests Test 09/10/21 12:00 09/10/21 12:15 09/10/21 12:47 09/10/21 18:30 Range/Units Influenza Type A (RT-PCR) Not Detected Not Detecte Influenza Type B (RT-PCR) Not Detected Not Detecte SARS-CoV-2 RNA (RT-PCR) Not Detected Not Detecte White Blood Count 5.8 4.3-11.0 10^3/uL Red Blood Count 4.55 4.30-5.52 10^6/uL Hemoglobin 13.5 13.3-17.7 g/dL Hematocrit 40 40-54 % Mean Corpuscular Volume 88 80-99 fL Mean Corpuscular Hemoglobin 30 25-34 pg Mean Corpuscular Hemoglobin Concent 34 32-36 g/dL Red Cell Distribution Width 12.5 10.0-14.5 % Platelet Count 167 130-400 10^3/uL Mean Platelet Volume 8.9 L 9.0-12.2 fL Immature Granulocyte % (Auto) 0 % Neutrophils (%) (Auto) 89 H 42-75 % Lymphocytes (%) (Auto) 6 L 12-44 % Monocytes (%) (Auto) 5 0-12 % Eosinophils (%) (Auto) 0 0-10 % Basophils (%) (Auto) 1 0-10 % Neutrophils # (Auto) 5.1 1.8-7.8 10^3/uL Lymphocytes # (Auto) 0.3 L 1.0-4.0 10^3/uL Monocytes # (Auto) 0.3 0.0-1.0 10^3/uL Eosinophils # (Auto) 0.0 0.0-0.3 10^3/uL Basophils # (Auto) 0.0 0.0-0.1 10^3/uL Immature Granulocyte # (Auto) 0.0 0.0-0.1 10^3/uL Neutrophils % (Manual) 81 % Lymphocytes % (Manual) 6 % Monocytes % (Manual) 4 % Band Neutrophils 9 % Blood Morphology Comment NORMAL Prothrombin Time 14.0 12.2-14.7 SEC INR Comment 1.0 0.8-1.4 Activated Partial Thromboplast Time 31 24-35 SEC Sodium Level 133 L 135-145 MMOL/L Potassium Level 3.9 3.6-5.0 MMOL/L Chloride Level 100 98-107 MMOL/L Carbon Dioxide Level 24 21-32 MMOL/L Anion Gap 9 5-14 MMOL/L Blood Urea Nitrogen 10 7-18 MG/DL Creatinine 0.90 0.60-1.30 MG/DL Estimat Glomerular Filtration Rate 98 BUN/Creatinine Ratio 11 Glucose Level 126 H 70-105 MG/DL Lactic Acid Level 1.19 0.50-2.00 MMOL/L Calcium Level 8.8 8.5-10.1 MG/DL Corrected Calcium 9.0 8.5-10.1 MG/DL Magnesium Level 2.0 1.6-2.4 MG/DL Total Bilirubin 0.4 0.1-1.0 MG/DL Aspartate Amino Transf (AST/SGOT) 18 5-34 U/L Alanine Aminotransferase (ALT/SGPT) 15 0-55 U/L Alkaline Phosphatase 56 40-136 U/L Total Creatine Kinase 82 30-200 U/L Myoglobin 18.4 10.0-92.0 NG/ML Troponin I < 0.028 <0.028 NG/ML C-Reactive Protein High Sensitivity 3.56 H 0.00-0.50 MG/DL Total Protein 7.2 6.4-8.2 GM/DL Albumin 3.8 3.2-4.5 GM/DL Procalcitonin 0.20 H <0.10 NG/ML TSH [place] Testing 1.33 0.35-4.94 UIU/ML Urine Color YELLOW Urine Clarity CLEAR Urine pH 6.0 5-9 Urine Specific [place] >=1.030 1.016-1.022 Urine Protein 2+ H NEGATIVE Urine Glucose (UA) NEGATIVE NEGATIVE Urine Ketones TRACE H NEGATIVE Urine Nitrite NEGATIVE NEGATIVE Urine Bilirubin NEGATIVE NEGATIVE Urine Urobilinogen 0.2 < = 1.0 MG/DL Urine Leukocyte Esterase NEGATIVE NEGATIVE Urine RBC (Auto) TRACE-I H NEGATIVE Urine RBC RARE /HPF Urine WBC NONE /HPF Urine Squamous Epithelial Cells RARE /HPF Urine Crystals PRESENT H /LPF Urine Amorphous Sediment RARE DELIA URATES H /LPF Urine Bacteria NEGATIVE /HPF Urine Casts NONE /LPF Urine Mucus NEGATIVE /LPF Urine Culture Indicated NO Body Fluid Slide Review Yes CSF Tube Number UNK CSF Appearance CLEAR CSF Color COLORLESS CSF WBC 21 H 0-5 CELLS CSF RBC 5 H 0-0 CELLS CSF Lymphocytes 22 % CSF Mononuclear WBCs 16 % CSF Polynuclear WBCs 62 % CSF Glucose 69 50-80 MG/DL CSF Total Protein 114 H 15-40 MG/DL Test 09/10/21 20:38 Range/Units (ALEX LOGAN DO) My Orders Orders - URIEL LOGANA Adrienne DO Fentanyl Inj (Sublimaze Injection) (09/11/21 01:00) Ondansetron Injection (Zofran Injectio (09/11/21 06:00) Fentanyl Inj (Sublimaze Injection) (09/11/21 06:00) Acetaminophen Tablet (Tylenol Tablet) (09/11/21 06:00) Ibuprofen Tablet (Motrin Tablet) (09/11/21 06:00) (ALEX LOGAN DO) Medications Given in ED Current Medications Medications Dose Ordered Sig/Cornelius Route Start Time Stop Time Status Last Admin Dose Admin Ampicillin Sodium 2000 mg/Sterile Water 29.6 ml @ 60 mls/hr ONCE ONCE IV 09/10/21 20:30 09/10/21 20:59 DC 09/10/21 21:09 60 MLS/HR Ceftriaxone Sodium 2000 mg/ Sodium Chloride 50 ml @ 240 mls/hr ONCE ONCE IV 09/10/21 20:30 09/10/21 20:42 DC 09/10/21 20:53 240 MLS/HR Doxycycline Hyclate 100 mg/ Sodium Chloride 100 ml @ 100 mls/hr ONCE ONCE IV 09/10/21 19:00 09/10/21 19:59 DC 09/10/21 19:01 100 MLS/HR Fentanyl Citrate 50 mcg ONCE ONCE IVP 09/10/21 21:15 09/10/21 21:16 DC 09/10/21 21:09 50 MCG Fentanyl Citrate 50 mcg ONCE ONCE IVP 09/11/21 01:00 09/11/21 01:01 DC 09/11/21 01:05 50 MCG Ketorolac Tromethamine 30 mg ONCE ONCE IVP 09/10/21 18:45 09/10/21 18:46 DC 09/10/21 18:39 30 MG (PIPO,ALEX K DO) Vital Signs/I&O 09/10/21 09/10/21 09/10/21 18:39 19:09 22:00 Temp 39.1 38.6 36.6 Pulse 66 B/P (MAP) 09/10/21 23:59 Intake Total 2200 ml Balance 2200 ml (PIPO,ALEX K DO) Vital Signs/I&O Capillary Refill : Less Than 3 Seconds (KAI COOK MD) Blood Pressure Mean: 91 Progress Note #1: Time: 15:20 Progress Note Patient was given IV fluids and Zofran. Tylenol and NSAIDs were not used yet due to proximity of dose this morning. Viral swabs were negative. Source of fever is yet to be determined. Given patient's unusual history of pulmonary pathology, CT scan of the chest will be sought. I discussed this with the eICU provider on-call. Recommendation was for CT angiogram. CT head will also be obtained in preparation for lumbar puncture. Because there is no other explanation for his symptoms and his somnolence and dulled cognition seem to have worsened since arrival, LP is being pursued. Progress Note #2: Time: 19:[address] scans were relatively unremarkable. LP was performed by anesthesia staff. Opening pressure was 19. CSF protein level was 114. Tickborne illness still has not been completely ruled out. Doxycycline 100 mg IV is being administered. A West Nile virus titer has also been ordered. An infectious disease consultation is desired. [facility] does not have an infectious disease media consultant outside sales available in [place] and [facility] is on med-surg diversion. Progress Note #3: Time: 20:35 Progress Note CSF demonstrated elevated protein. There is clarification needed on the WBC count as there is a new methodology being performed by lab. A manual count is being performed. I have attempted to call ID consultation in [place], but [facility] does not have an ID media consultant outside sales on-call and [facility] is on admission diversion. I spoke with Dr. Perez, infectious disease specialist at [facility]. He shares concern about encep halitis and need for specialty care. He has made several recommendations. He recommended the following empiric therapies: Ampicillin 2 g IV every 4 hours Ceftriaxone 2 g IV every 12 hours Doxycycline 100 mg IV every 12 hours Acyclovir 10 mg/kg IV every 8 hours with supplemental fluids In addition he recommended further work-up including HIV screen, cryptococcal antigen of CSF and serum (we only have CSF antigen order available in our system), West Nile virus CSF IgG and IgM, and CSF HSV 1 and 2. These labs were ordered. Progress Note #4: Time: 21:05 Progress Note Manual CSF count was WBC 21 and RBC 5. I discussed this update with Dr. Peerz. He recommended proceeding with the plan as discussed but not necessarily transfer to [facility]. They have a very tight bed situation at present and are closely screening there transfers in due to bed availability. He recommended admission at this facility following the current plan and adding an MRI as soon as available. I discussed the situation with Dr. Reid. She does not accept admission at this time as she believes there is necessity for neurology and infectious disease consultation. Care of this patient is being transitioned to Dr. Logan at this time and I will provide an update to the family and [facility]. Progress Note #5: Time: 10:52 Progress Note I assumed care of this patient back from Dr. Logan this morning. He had a relatively uneventful night last night. He has received Tylenol and ibuprofen for recurrent fever and headaches. He still complains of headache now. Fentanyl has been administered as additional treatment for headache. Transfer to [facility] is still pending due to problems with EMS availability. MRI was shan ilable this morning so MRI brain with and without contrast is being obtained while we are awaiting EMS transfer. Morning doses of ampicillin, Rocephin, doxycycline, and acyclovir have been administered. Patient's mentation seems more brisk this morning than it was yesterday. He seems more alert and speech is sharper. There was minimal change on repeat labs. Progress Note #6: Progress Note MRI imaging was obtained prior to transfer. Report was still pending at the time patient transferred. I have made a request to cloud all imaging studies to [facility]. I also called the clinic to inquire about the final lab results from his outpatient work-up. Unfortunately, the results have not been finalized. I requested that they contact us when results become final so that we can pass those on to [facility]. (KAI COOK MD) Progress Note : Progress Note 2129--ASSUMED CARE OF PT. PT IS PENDING TRANSFER TO AT THIS TIME. PT IS RESTING QUIETLY AND HAS NO COMPLAINTS. VITALS STABLE. 0600--CARE TURNED BACK OVER TO DR. COOK. PT NOW C/O NAUSEA, AND HEADACHE AND TEMP IS BACK UP TO 39.2. ADDITIONAL PAIN MEDICATION, NAUSEA MEDICATION AND TYLENOL AND MOTRIN ORDERED. STILL AWAITING TRANSPORTATIONS (ALEX LOGAN DO) ECG Initial ECG Impression Date: Sep 10, 2021 Initial ECG Impression Time: 12:43 Initial ECG Rate: 101 Initial ECG Rhythm: S.Tach Comment Sinus tachycardia with no ST elevation or depression. No abnormal intervals or axis deviation. (KAI COOK MD) Diagnostic Imaging Diagonstic Imaging: Xray Plain Films/CT/US/NM/MRI: chest Comments NAME: DARLENE HUSSEIN [facility] REC#: [id number] PT STATUS: REG ER : 1960 PHYSICIAN: KAI COOK MD ADMIT DATE: 09/10/21/ER Signed Date of Exam:09/10/21 CHEST 1 VIEW, AP/PA ONLY INDICATION: Fever, chest pain. COMPARISON: 06/15/2018 TECHNIQUE: Single radiograph of the chest dated 09/10/2021. FINDINGS: The cardiac silhouette is within normal limits in size. No significant pulmonary vascular congestion. The lungs are clear. No pleural effusion. No pneumothorax. No acute osseous abnormality. IMPRESSION: No acute cardiopulmonary abnormality. Dictated by: Dictated on workstation # [id number] Dict: 09/10/21 1324 Trans: 09/10/21 1617 [id number] Interpreted by: SELAM REYNOSO MD Electronically signed by: SELAM REYNOSO MD 09/10/21 1617 Diagonstic Imaging: CT Plain Films/CT/US/NM/MRI: head Comments NAME: DARLENE HUSSEIN MED REC#: [id number] PT STATUS: REG ER : 1960 PHYSICIAN: KAI COOK MD ADMIT DATE: 09/10/21/ER Signed Date of Exam:09/10/21 CT HEAD WO PROCEDURE: CT head without contrast. TECHNIQUE: Multiple contiguous axial images were obtained through the brain without the use of intravenous contrast. Auto Exposure Controls were utilized during the CT exam to meet ALARA standards for radiation dose reduction. INDICATION: Fever and cough. COMPARISON: No prior studies are available for comparison. FINDINGS: Ventricles and sulci are within normal limits. No sulcal effacement or midline shift is identified. No acute intra-axial or extra-axial hemorrhage is detected. Cisterns are patent. Visualized paranasal sinuses are clear. IMPRESSION: No acute intracranial process is detected. Dictated by: Dictated on workstation # [id number] Dict: 09/10/21 1530 Trans: 09/10/21 1554 [id number] Interpreted by: EMELYN ARMAS MD Electronically signed by: EMELYN ARMAS MD 09/10/21 1554 Diagonstic Imaging: CT Plain Films/CT/US/NM/MRI: chest Comments NAME: DRALENE HUSSEIN MED REC#: [id number] PT STATUS: REG ER : 1960 PHYSICIAN: KAI COOK MD ADMIT DATE: 09/10/21/ER Signed Date of Exam:09/10/21 CT ANGIO CHEST W PROCEDURE: CT angiography of the chest with contrast. TECHNIQUE: Multiple contiguous axial images were obtained through the chest after uneventful bolus administration of intravenous contrast. 3D reconstructed CTA MIP acquisitions were also performed. Auto Exposure Controls were utilized during the CT exam to meet ALARA standards for radiation dose reduction. INDICATION: Fever, cough as well as joint pain, nausea and headache. COMPARISON: Correlation is made with prior CT chest from 06/03/2018. FINDINGS: Evaluation of the pulmonary arterial system is without thromboembolism. No filling defects are seen within central, lobar or segmental branches. Thoracic aorta is nonaneurysmal. No dissection is seen. There are calcified lymph nodes throughout the mediastinum and alia bilaterally, consistent with prior granulomatous exposure. There is no pericardial or pleural fluid. Lungs are clear. No infiltrates are seen. Upper abdomen is unremarkable. IMPRESSION: 1. No evidence of pulmonary embolism or acute aortic disease. 2. Prior granulomatous exposure. Dictated by: Dictated on workstation # [id number] Dict: 09/10/21 1539 Trans: 09/10/21 1554 [id number] Interpreted by: EMELYN ARMAS MD Electronically signed by: EMELYN ARMAS MD 09/10/21 1554 Diagonstic Imaging: MRI Plain Films/CT/US/NM/MRI: head Comments NAME: DARLENE HUSSEIN [facility] REC#: [id number] PT STATUS: REG ER : 1960 PHYSICIAN: KAI COOK MD ADMIT DATE: 09/10/21/ER Signed Date of Exam:09/11/21 MRI BRAIN W/WO CONTRAST MRI brain with and without contrast Indication: Encephalitis. Comparison: CT head 09/10/2021. Technique: Multiplanar, multisequence MRI of the brain was performed with and without contrast. Findings: There is no diffusion restriction present to suggest acute ischemia. There is no MR evidence of intracranial hemorrhage. There is no intracranial mass effect demonstrated. There is no abnormal extra-axial collection. Haines and white matter signal characteristics appear within normal limits. There are no findings of abnormal FLAIR hyperintensity within the sulci. The ventricular system is appropriate in size and configuration. The basilar cisterns are patent. Posterior fossa is unremarkable. There is normal alignment of the craniocervical junction. Pituitary gland is unremarkable. The pineal region appears normal. Postcontrast imaging demonstrates no MR evidence of pathologic intracranial enhancement. There is no abnormal leptomeningeal or pachymeningeal enhancement. No orbital abnormality evident on this nondedicated exam. There is minimal mucosal thickening within the ethmoid and maxillary sinuses. Mastoid air cells are clear. Expected arterial and dural venous sinus flow voids are preserved. Impression: No MR evidence of an acute intracranial abnormality. There is no evidence of ischemia, hemorrhage, parenchymal signal abnormality, intracranial mass effect, hydrocephalus, or pathologic intracranial enhancement. Dictated by: Dictated on workstation # [id number] Dict: 09/11/21 1144 Trans: 09/11/21 1148 [facility] [id number] Interpreted by: RICHARD CHAVARRIA MD Electronically signed by: RICHARD CHAVARRIA MD 09/11/21 1148 (KAI COOK MD) Critical Care Note Critical Care Start Time: 18:10 Stop Time: 18:30 (KAI COOK MD) Departure Communication (Admissions) 2138--[facility] HAS CALLED AND THEY HAVE OK'D TRANSFER OF PT. 2145--CALLED [facility]. THEY WILL CALL BACK WITH ACCEPTING PHYSICIAN AND BED ASSIGNMENT 2151--[facility] CALLED BACK. DR. DAVIDSON HAS ACCEPTED THE PT FOR TRANSFER. NO LOCAL EMS IS AVAILABLE AT THIS TIME--MULTIPLE LOCAL EMS SERVICES WERE CONTACTED, AND NONE ARE AVAILABLE UNTIL SOMETIME TOMORROW MORNING. NO AIR TRANSPORT IS AVAILABLE DUE TO WEATHER. (ALEX LOGAN DO) Impression Primary Impression: Fever of unknown origin Additional Impressions: Flu-like symptoms Altered mental status Qualified Codes: R41.82 - Altered mental status, unspecified Disposition: XFER SHT-TRM HOSP Condition: Stable Transfer Transfer Progress Notes Case was reviewed with Dr. Perez, infectious disease specialist at [facility] who initially consulted on the case. Transfer was additionally arranged by the triage drainage design coordinator. Transfer Time: 11:35 (KAI COOK MD) Transfer Reason: Exceeds level of care Transfer Facility: [facility] Method of Transfer: EMS (ALEX LOGAN DO) Departure-Patient Inst. Referrals: GOMEZ DAI MD (PCP/Family) Primary Care Physician Copy Copies To 1: SELF,KAI PETERSEN MD, MD Sep 10, 2021 19:48 ALEX LOGAN DO Sep 11, 2021 01:31
[2021-09-10] MEDS ORDERED: ACYCLOVIR INJECTION 800 MG in NS (IVPB) 250 ML IV STA (20:28)
[2021-09-10] MEDS ORDERED: AMPICILLIN FOR IV USE 2,000 MG in WATER (STERILE) FOR INJECTION 14.8 ML IV ONE (20:30)
[2021-09-10] MEDS ORDERED: cefTRIAXone 2,000 MG in NS (IVPB) 50 ML IV ONE (20:30)
[2021-09-10] MEDS ORDERED: NS (IVPB) 250 ML ONE (20:57)
[2021-09-10 21:05] LABS: RED BLOOD CELL,CSF 5 CELLS (0-0); WHITE BLOOD CELL,CSF 21 CELLS (0-5)
[2021-09-10] MEDS ORDERED: fentaNYL INJ 100 MCG/2 ML AMP ONE (21:06)
[2021-09-10 21:11] LABS: LYMPHOCYTES,CSF 22 %
[2021-09-10] MEDS: LACTATED RINGERS 1,000 ML IV SCH (23:06)
[2021-09-11] MEDS ORDERED: fentaNYL INJ 100 MCG/2 ML AMP IVP ONE ×3 (01:00→10:45)
[2021-09-11] MEDS ORDERED: ACETAMINOPHEN 500 MG TAB (TYLENOL) PO ONE (06:00)
[2021-09-11] MEDS ORDERED: ONDANSETRON 4 MG/2 ML (SDV) Z0FRAN IVP ONE (06:00)
[2021-09-11] MEDS ORDERED: IBUPROFEN 800 MG (MOTRIN) TAB PO ONE (06:00)
[2021-09-11] MEDS ORDERED: AMPICILLIN FOR IV USE 2,000 MG in WATER (STERILE) FOR INJECTION 14.8 ML IV ONE (06:15)
[2021-09-11] MEDS: LACTATED RINGERS 1,000 ML IV SCH (06:47)
[2021-09-11 07:52] LABS: TRIGLYCERIDES 92 MG/DL (<150); VLDL CHOLESTEROL 18 MG/DL (5-40)
[2021-09-11 07:57] LABS: CHOLESTEROL 130 MG/DL (< 200)
[2021-09-11 07:58] LABS: HDL CHOLESTEROL 36 MG/DL (40-60)
[2021-09-11] MEDS ORDERED: ACYCLOVIR INJECTION 800 MG in NS (IVPB) 250 ML IV STA ×2 (08:14→09:26)
[2021-09-11] MEDS ORDERED: DOXYCYCLINE INJECTION 100 MG in NS (IVPB) 100 ML IV ONE (08:15)
[2021-09-11] MEDS ORDERED: cefTRIAXone 2,000 MG in NS (IVPB) 50 ML IV ONE (08:15)
[2021-09-11 08:19] LABS: BASOPHILS % (AUTO) 0 % (0-10); EOSINOPHILS % (AUTO) 0 % (0-10); HEMATOCRIT 34 % (40-54); HEMOGLOBIN 11.8 g/dL (13.3-17.7); LYMPHOCYTES # (AUTO) 0.5 10^3/uL (1.0-4.0); LYMPHOCYTES % (AUTO) 10 % (12-44); MEAN CORPUSCULAR HEMOGLOBIN 30 pg (25-34); MEAN CORPUSCULAR HGB CONC 35 g/dL (32-36); MEAN CORPUSCULAR VOLUME 87 fL (80-99); MEAN PLATELET VOLUME 9.2 fL (9.0-12.2); MONOCYTES # (AUTO) 0.4 10^3/uL (0.0-1.0); MONOCYTES % (AUTO) 8 % (0-12); NEUTROPHILS # (AUTO) 4.2 10^3/uL (1.8-7.8); NEUTROPHILS % (AUTO) 80 % (42-75); PLATELET COUNT 147 10^3/uL (130-400); WHITE BLOOD COUNT 5.2 10^3/uL (4.3-11.0)
[2021-09-11 08:23] LABS: ALBUMIN 3.2 GM/DL (3.2-4.5); POTASSIUM 3.8 MMOL/L (3.6-5.0)
[2021-09-11 08:24] LABS: CALCIUM 7.8 MG/DL (8.5-10.1)
[2021-09-11 08:27] LABS: BILIRUBIN,TOTAL 0.3 MG/DL (0.1-1.0)
[2021-09-11 08:29] LABS: CREATININE SERUM 0.72 MG/DL (0.60-1.30)
[2021-09-11 08:38] LABS: ERYTHROCYTE SEDIMENTATION RATE 7 MM/HR (0-30)
[2021-09-11] MEDS ORDERED: GADOTERATE 0.5 MMOL/ML (CLARISCAN) 20 ML VIAL IV ONE (11:00)
[2021-09-11 11:35] VITALS: BP 121/69
--- NOTE | 2021-09-11 11:49 | Diagnostic Imaging Report ---
MRI brain with and without contrast Indication: Encephalitis. Comparison: CT head 09/10/2021. Technique: Multiplanar, multisequence MRI of the brain was performed with and without contrast. Findings: There is no diffusion restriction present to suggest acute ischemia. There is no MR evidence of intracranial hemorrhage. There is no intracranial mass effect demonstrated. There is no abnormal extra-axial collection. Haines and white matter signal characteristics appear within normal limits. There are no findings of abnormal FLAIR hyperintensity within the sulci. The ventricular system is appropriate in size and configuration. The basilar cisterns are patent. Posterior fossa is unremarkable. There is normal alignment of the craniocervical junction. Pituitary gland is unremarkable. The pineal region appears normal. Postcontrast imaging demonstrates no MR evidence of pathologic intracranial enhancement. There is no abnormal leptomeningeal or pachymeningeal enhancement. No orbital abnormality evident on this nondedicated exam. There is minimal mucosal thickening within the ethmoid and maxillary sinuses. Mastoid air cells are clear. Expected arterial and dural venous sinus flow voids are preserved. Impression: No MR evidence of an acute intracranial abnormality. There is no evidence of ischemia, hemorrhage, parenchymal signal abnormality, intracranial mass effect, hydrocephalus, or pathologic intracranial enhancement. Dictated by: Dictated on workstation # [id number]
== END 2021-09-11 11:35 | disposition short-term general hospital (02) ==
LOC: EDUNIT# 11:43 → ER 11:45
DX: R50.9 Fever, unspecified (principal); R41.82 Altered mental status, unspecified; R11.2 Nausea with vomiting, unspecified; R06.02 Shortness of breath; R00.0 Tachycardia, unspecified; R05.9 Cough, unspecified; R51.9 Headache, unspecified; R07.89 Other chest pain; M25.50 Pain in unspecified joint; Z87.09 Personal history of other diseases of the respiratory system; Z20.822 Contact with and (suspected) exposure to COVID-19
CPT/HCPCS: 36415; 70450; 70553; 71045; 71275; 80053; 80061; 81000; 82550; 82945; 83605; 83735; 83874; 84145; 84157; 84443; 84484; 85007; 85025; 85027; 85610; 85652; 85730; 86141; 86666; 86703; 86788; 86789; 87040; 87070; 87205; 87529; 87636; 89051; 93005; 93041